=== PATIENT | male | born 1990 | race Caucasian/White ===

== ENCOUNTER 2022-09-12 11:36 | Emergency (ER) | payer SELFPAY ==
[2022-09-12] MEDS ORDERED: Bacitracin/Neomycin/Polymyxin B Oint 15 GM Tube TOP ONE (12:30)
== END 2022-09-12 14:41 | disposition home or self-care (01) ==
LOC: JD.ED 11:36
DX: T33.821A Superficial frostbite of right foot, initial encounter (principal); F17.210 Nicotine dependence, cigarettes, uncomplicated; Z86.16 Personal history of COVID-19; X31.XXXA Exposure to excessive natural cold, initial encounter
CPT/HCPCS: 99283